=== PATIENT | male | born 1940 | race Caucasian/White ===

== ENCOUNTER 2020-02-17 15:31 | Observation (INO) | payer MEDICARE, BC ==
[~2020-02-17 15:31] MED LIST: Dexamethasone 20 MG/5 ML VIAL ONE; Glycopyrrolate 0.2 MG/ML 5 ML SYRINGE ONE; Iopamidol-370 76% 500 ML 1 ML ONE; Labetalol HCl 100 MG/20 ML VIAL ONE; Ondansetron PF 4 MG/2 ML Vial ONE; PROPOFOL 200 MG/20 ML VIAL ONE; Rocuronium Bromide 10 MG/ML (10ML VIAL) ONE
[2020-02-17] MEDS ORDERED: Ondansetron PF 4 MG/2 ML Vial ONE ×2 (15:38→16:18)
--- NOTE | 2020-02-17 16:14 | RAD ---
EXAM: CHEST ONE VIEW HISTORY: Abdominal pain which started this morning. Cardiac history. COMPARISON: 08/28/2016 FINDINGS: Postoperative changes related to median sternotomy are again present. Cardiac silhouette is magnified by projection. Previously seen lines and tubes are no longer visualized. Calcified mediastinal and hilar lymph nodes are seen related to prior granulomatous disease. Calcified granuloma also overlies the left lung base. Minimal linear densities are seen in the right mid lung zone with minimal patchy density at the right lung base. No other interval change. IMPRESSION: Minimal patchy density right lung base with linear densities in the lateral aspect right midlung zone . Findings may be related to atelectasis, but areas of pneumonitis are a possibility. Follow-up chest x-ray is recommended to ensure resolution.
[2020-02-17] MEDS ORDERED: Morphine 4 MG/ML VIAL ONE (16:18)
[2020-02-17 16:50] LABS: #Eosinphils 0.1 thou/uL (0.0-0.7); #Lymphocytes 0.8 thou/uL (1.20-3.40); #Monocytes 1.1 thou/uL (0.11-0.59); #Neutrophils 12.3 thou/uL (1.40-6.50); %Basophils 0.1 % (0.0-1.0); %Eosinophils 0.5 % (0.0-10.0); %Lymphocytes 5.3 % (21.0-51.0); %Monocytes 7.9 % (0.0-10.0); %Neutrophils 86.2 % (42.0-75.0); Hemoglobin 14.2 g/dL (14.0-18.0); Mean Corpuscular HGB CONC 32.8 g/dL (32.0-36.0); Mean Corpuscular Hemoglobin 29.5 pg (27.0-31.0); Mean Platelet Volume 9.1 fL (7.4-10.4); Platelet Count 164 thou/uL (130-400); RBC Distribution Width 12.8 % (11.5-14.5); White Blood Cell (WBC) Count 14.3 thou/uL (4.8-10.8)
[2020-02-17 17:08] LABS: ALT (SGPT) 26 U/L (8-55); AST (SGOT) 23 U/L (5-34); Albumin 4.3 g/dL (3.4-4.8); Alkaline Phosphatase 59 U/L (40-110); Anion Gap 17 mmol/L (10-20); BUN (Urea Nitrogen) 14 mg/dL (8.4-25.7); Bilirubin, Total 0.8 mg/dL (0.2-1.2); Calc. Creatinine Clearance 0 mL/min (70-130); Calcium 8.7 mg/dL (7.8-10.44); Carbon Dioxide 27 mmol/L (23-31); Chloride 100 mmol/L (98-107); Globulin 2.3 g/dL (2.4-3.5); Glucose 112 mg/dL (83-110); Lipase 41 U/L (8-78); Potassium 3.5 mmol/L (3.5-5.1); Protein, Total 6.6 g/dL (5.8-8.1); Sodium 140 mmol/L (136-145)
--- NOTE | 2020-02-17 17:10 | CT ---
CT ABDOMEN AND PELVIS WITH IV CONTRAST 02/17/2020 CLINICAL INFORMATION: Right lower quadrant abdominal pain. COMPARISON: 07/13/2013. Technique: Multiple contiguous axial CT images are obtained through the abdomen and pelvis with IV contrast. Cor onal reformatted images are provided. FINDINGS: Lower Chest: Calcified left infrahilar lymph nodes are present with calcified granuloma at the left l shelby base. Minimal interstitial densities are seen at each lung base which may represent mild chronic lung changes. Postoperative changes related to median sternotomy are seen. Vessels: Vascular calcifications are seen in the coronary arteries as well as involving the abdominal aorta and iliac arteries. Abdomen: Portal vein:Patent Gallbladder: Within normal limits for CT imaging. Liver: Stable subcentimeter hypodense lesion is seen in the right hepatic lobe likely corresponding t o small cyst. Spleen: Splenic granulomata are present. Pancreas: Incidental note is made of a 8 mm low-density cystic structure in the body of the pancreas. Follow-up CT exam in 6 months to one year is recommended. Adrenals: within normal limits. Kidneys: Few subcentimeter too small to characterize hypodense lesions are seen in the midportion rig ht kidney statistically likely representing cysts. Bowel: Loops of small bowel are normal in caliber. There is evidence of colonic diverticulosis. A sma ll hiatal hernia is present. Appendix: The appendix is dilated and fluid-filled with distal aspect of the appendix measuring 1.7 c m in diameter. Periappendiceal inflammatory stranding and fluid is present. No adjacent fluid collection is seen, and there is no free intraperitoneal gas seen adjacent to the appendix. Peritoneum: No ascites or free air; no fluid collection. Mesentery and Retroperitoneum: No enlarged mesenteric or retroperitoneal lymph nodes. Abdominal Wall: within normal limits. Pelvis: Reproductive Organs: No pelvic masses. Bladder: Incompletely distended but grossly within normal limits. Bones: Multilevel degenerative changes in the spine. IMPRESSION: 1. Acute appendicitis. 2. Small subcentimeter cystic lesion body of the pancreas. Follow-up CT scan in 6 months to one year is recommended. 3. Additional findings as above. 4. Above findings discussed Dr. Flaherty in the emergency on 02/17/2020 at 1707 hours.
[2020-02-17] MEDS ORDERED: Fentanyl 100 MCG/2 ML VIAL ONE ×2 (17:28→19:32)
[2020-02-17] MEDS ORDERED: ePHEDrine 50 MG/ML VIAL ONE (17:34)
[2020-02-17] MEDS ORDERED: Bupivacaine 0.25% HCL 30 ML VIAL ONE (17:34)
[2020-02-17] MEDS ORDERED: EPINEPHrine 1 MG/ML AMP ONE (17:34)
[2020-02-17] MEDS ORDERED: SUGAMMADEX SODIUM 500 MG/5 ML VIAL ONE (17:44)
[2020-02-17] MEDS ORDERED: Piperacillin/Tazobactam 3.375 GM VIAL ONE (17:50)
[2020-02-17 19:27] LABS: SARS-CoV-2 NAA Rapid Test Not Detected (NotDetected)
--- NOTE | 2020-02-17 19:43 | HP ---
CHIEF COMPLAINT: Right lower quadrant pain. HISTORY OF PRESENT ILLNESS: This is a 79-year-old male who presents with a history of bilateral lower abdominal pain that started early this morning, that was mild and crampy, became more continuous right lower quadrant pain this evening, seen in the emergency room where a CT scan shows acute appendicitis. Pain is described as sharp, 9/10, worse when it is touched, worse when he moves, associated with no fever or chills and no nausea or vomiting. Pain is actually improved now unless he is pushed on. He has never had pain like this before. No previous abdominal surgery. PAST MEDICAL HISTORY: Includes: 1. Hypertension. 2. BPH. SURGICAL HISTORY: He denies. MEDICATIONS: Include: 1. Toprol. 2. Hydrochlorothiazide. 3. Losartan. 4. Finasteride. ALLERGIES: NO KNOWN DRUG ALLERGIES. SOCIAL HISTORY: No smoking or alcohol or other drugs. REVIEW OF SYSTEMS: Ten-system review of systems is otherwise negative unless described above. PHYSICAL EXAMINATION: HEENT: Sclerae anicteric. Oropharynx clear. NECK: No lymphadenopathy. CHEST: Clear. HEART: Regular rate. ABDOMEN: Soft. Tender in the right lower quadrant with localized guarding without rebound tenderness. EXTREMITIES: No ischemia or edema to extremities. LABORATORY DATA: Creatinine 0.79. White blood cell count is [address] scan shows acute appendicitis. ASSESSMENT: Acute appendicitis. PLAN: Laparoscopic appendectomy. Risks, benefits, and alternatives discussed. He gives consent. We will do this tonight. Job ID: [id number]
--- NOTE | 2020-02-17 20:06 | OP ---
DATE OF PROCEDURE: 02/17/2020 PREOPERATIVE DIAGNOSIS: Acute appendicitis. POSTOPERATIVE DIAGNOSIS: Acute appendicitis. PROCEDURE PERFORMED: Laparoscopic appendectomy. ANESTHESIA: General. ESTIMATED BLOOD LOSS: Minimal. COMPLICATIONS: None. SPECIMEN: Appendix. FINDINGS: Localized perforation. DESCRIPTION OF PROCEDURE: The patient was taken to the operating room and laid supine on the operating table. After general anesthetic was obtained, a [place] was placed. The abdomen was shaved, prepped, and draped in a sterile fashion. A curved incision was made below the umbilicus. Cautery was used to dissect down to and score the fascia. Abdominal cavity was entered bluntly using a Wilma clamp. A holding stitch of PDS was placed on each side of the fascia and a Sabrina trocar was placed. High-flow pneumoperitoneum was obtained. Suprapubic 5-mm port and a left lower quadrant 5-mm port were placed under direct visualization. The cecum was rolled over to reveal acute appendix with localized severe inflammatory change. The base of the appendix was stapled across using a laparoscopic stapler. The right colon was mobilized. The appendix and cecum were mobilized up from the pelvis using cautery without injury. A stapler was fired across the mesentery for the appendix. There was a small pulsatile bleeder that was clipped using laparoscopic clip. There was omentum that was stuck over the top, that was cauterized and pulled off the appendix. Appendix was placed in EndoCatch bag and brought out through the Sabrina. Right lower quadrant and pelvis were irrigated copiously until returns were clear. There was no bleeding. There was no injury to any intraabdominal structures. All port sites were infiltrated using local anesthetic. All ports were removed under camera visualization. Pneumoperitoneum was let down. PDS was used to close the fascial defect below the umbilicus. All incisions were irrigated and closed using 4-0 Monocryl and Dermabond. The patient was sent to Recovery in stable condition. All instrument counts, needle counts, and lap counts were correct. Job ID: [id number]
[2020-02-17 21:09] VITALS: BMI 22.0
[2020-02-17] MEDS ORDERED: Ondansetron PF 4 MG/2 ML Vial IVP PRN (21:19)
[2020-02-17] MEDS ORDERED: Dextrose 50% Abboject 50 ML SYRINGE SLOW IVP PRN (21:19)
[2020-02-17] MEDS ORDERED: Morphine 2 MG/ML VIAL SLOW IVP PRN (21:19)
[2020-02-17] MEDS ORDERED: hydrALAZINE 20 MG/ML VIAL SLOW IVP PRN (21:19)
[2020-02-17] MEDS ORDERED: Morphine 4 MG/ML VIAL SLOW IVP PRN (21:19)
[2020-02-17] MEDS ORDERED: HYDROcodone/Acetaminophen 7.5/325 mg Tablet PO PRN (21:19)
[2020-02-17] MEDS ORDERED: Promethazine HCl 25 MG/ML VIAL IM PRN (21:19)
[2020-02-17] MEDS ORDERED: Dextrose 5% in Water 1,000 ML IV PRN (21:19)
[2020-02-17] MEDS ORDERED: Finasteride 5 MG TAB PO SCH (21:45)
[2020-02-17] MEDS ORDERED: Famotidine 20 MG TAB PO SCH (22:00)
[2020-02-17] MEDS ORDERED: Sodium Chloride 0.9% 1,000 ML IV SCH (22:00)
[2020-02-17] MEDS: Piperacillin/Tazobactam 3.375 GM in Sodium Chloride 0.9% 100 ML IVPB SCH (23:22)
[2020-02-18] MEDS: Piperacillin/Tazobactam 3.375 GM in Sodium Chloride 0.9% 100 ML IVPB SCH (05:40)
[2020-02-18] MEDS ORDERED: Famotidine/PF 20 mg/2ml Vial SLOW IVP SCH (09:00)
[2020-02-18] MEDS ORDERED: Famotidine 20 MG TAB PO SCH (09:00)
--- NOTE | 2020-02-18 09:38 | DIS ---
DATE OF ADMISSION: 02/17/2020 DATE OF DISCHARGE: 02/18/2020 ADMIT DIAGNOSIS: Acute appendicitis. DISCHARGE DIAGNOSIS: Acute appendicitis. PROCEDURE PERFORMED: Laparoscopic appendectomy by Dr. Foy, without complication. CONDITION ON DISCHARGE: Improved. STAFF: Delmer Foy MD HOSPITAL COURSE: Postop day 1, the patient is doing well. His pain has resolved. He is ambulatory. He is tolerating regular diet. He is being discharged home. He will resume home medications as before. Prescriptions for Augmentin, [place], Zofran sent to [facility] in [place] in [place]. Job ID: [id number]
[2020-02-18 11:18] VITALS: BP 138/63; TEMP 97.9
[2020-02-18] MEDS ORDERED: Finasteride 5 MG TAB PO SCH (21:00)
--- NOTE | 2020-02-19 12:17 | EKG ---
Test Reason : Blood Pressure : / mmHG Vent. Rate : 083 BPM Atrial Rate : 083 BPM P-R Int : 140 ms QRS Dur : 084 ms QT Int : 354 ms P-R-T Axes : 048 -03 029 degrees QTc Int : 415 ms Normal sinus rhythm Possible Left atrial enlargement Nonspecific ST abnormality Abnormal ECG Baseline Artifact Present Confirmed by DOMINIK FERRO ([id number]), editor book SANDHYA SAGE ([id number]) on 02/19/2020 12:17:25 PM Referred By: Confirmed By:DOMINIK FERRO
== END 2020-02-18 11:30 | disposition home or self-care (01) ==
LOC: ERS 15:31 → SDC/OP 17:14 → SJJU 18:32
PROVIDERS: ADMIT Surgery; ATTEND Surgery
PROC: 0DTJ4ZZ Resection of Appendix, Percutaneous Endoscopic Approach (ICD-10-PCS; principal; 2020-02-17)
DX: K35.32 Acute appendicitis with perforation, localized peritonitis, and gangrene, without abscess (principal); I10 Essential (primary) hypertension; N40.0 Benign prostatic hyperplasia without lower urinary tract symptoms; K86.9 Disease of pancreas, unspecified; E78.5 Hyperlipidemia, unspecified; Z79.82 Long term (current) use of aspirin; Z79.899 Other long term (current) drug therapy; Z95.1 Presence of aortocoronary bypass graft; Z95.5 Presence of coronary angioplasty implant and graft; Z20.828 Contact with and (suspected) exposure to other viral communicable diseases
CPT/HCPCS: 44970; 71045; 74177; 80053; 82150; 83690; 84484; 85025; 93005; 96365; 96375; 99285; U0002; 36415; 88304; 96366; G0378; J0171; J1100; J2270; J2405; J2543; J2704; J3010; J3490; Q9967; S0020